=== PATIENT | male | born 1980 | race African-American/Black ===

== ENCOUNTER 2022-05-18 09:04 | Emergency (ER) | payer SELFPAY ==
[~2022-05-18] VITALS: Ht 195.6 cm; Wt 86.2 kg
--- NOTE | 2022-05-18 09:06 | NUR ---
PT BIB SELF TO ER FROM HOME TO TRIAGE WITH ANIVAL ARTEAGA.
--- NOTE | 2022-05-18 09:15 | NUR ---
Patient to ER bed 05 to gown for evaluation. Side rails up. Report given to ANIVAL Davis.
[2022-05-18 09:17] VITALS: BP_SYST 127
[2022-05-18 09:59] LABS: HEMATOCRIT 40.3 % (36-54); HEMOGLOBIN 13.7 g/dL (14.0-18.0); LYMPHOCYTES # (AUTO) 1.1 K/uL (1.0-5.5); LYMPHOCYTES % (AUTO) 22.6 % (20.5-51.5); MEAN CORPUSCULAR HEMOGLOBIN 33 pg (27-31); MEAN CORPUSCULAR HGB CONC 34 % (32-36); MEAN CORPUSCULAR VOLUME 97 fL (79.0-98.0); MONOCYTES # (AUTO) 0.7 K/uL (0.0-1.0); MONOCYTES % (AUTO) 14.3 % (1.7-9.3); NEUTROPHILS # (AUTO) 2.9 K/uL (1.8-7.7); NEUTROPHILS % (AUTO) 62.1 % (40.0-70.0); PLATELET COUNT (AUTO) 253 K/uL (130-430); RED BLOOD CELL COUNT(AUTO) 4.17 MIL/uL (4.2-6.2); RED CELL DISTRIBUTION WIDTH 13.1 % (9.0-15.0); WHITE BLOOD COUNT (AUTO) 4.7 K/uL (4.8-10.8)
--- NOTE | 2022-05-18 10:00 | NUR ---
Pt bib self. CC Weakness, generalized weakness pt notes chest back feels pressure. Pt is aaox3, hand grasps strong, pt states long travel from [place] and is now feeling weakness.
[2022-05-18 10:09] LABS: ANION GAP 5 (5-15); CALCIUM 8.6 mg/dL (8.4-11.0); CHLORIDE 103 mmol/L (98-107); CREATININE 1.39 mg/dL (0.55-1.30); GLUCOSE 93 mg/dL (70-99); UREA NITROGEN, BLOOD 8 mg/dL (8-21)
[2022-05-18 10:17] LABS: ALANINE AMINOTRANSFERASE 13 U/L (12-78); ALBUMIN 3.9 g/dL (3.4-4.8); ASPARTATE AMINOTRANSFERASE 18 U/L (10-37); TOTAL BILIRUBIN 0.5 mg/dL (0.0-1.0)
[2022-05-18 10:31] LABS: GFR AFRICAN AMERICAN 73 mL/min (>90)
[2022-05-18] MEDS ORDERED: cefTRIAXone 500 MG in LIDOCAINE 1%, 20 ML MDV 1 ML IM ONE (11:15)
[2022-05-18] MEDS ORDERED: IBUP-1969 PO (12:46)
[2022-05-18] MEDS ORDERED: DOXY100C5 PO (12:46)
--- NOTE | 2022-05-18 13:37 | NUR ---
Patient given written and verbal discharge instructions and verbalizes understanding. ER MD discussed with patient the results and treatment provided. Patient in stable condition. ID arm band removed. Patient educated on pain management and to follow up with PMD. Opportunity for questions provided and answered. Medication side effect fact sheet provided.
[2022-05-18 13:41] VITALS: BP_SYST 127
== END 2022-05-18 13:37 | disposition home or self-care (01) ==
LOC: SED 09:04
DX: R07.89 Other chest pain (principal); F17.210 Nicotine dependence, cigarettes, uncomplicated; Z20.2 Contact with and (suspected) exposure to infections with a predominantly sexual mode of transmission; Z79.899 Other long term (current) drug therapy
CPT/HCPCS: 99285; 71045; 86592; 80053; 85025; 85379; 84484; 36415; 93005; 87491; J0696